=== PATIENT | male | born 1955 | race Hispanic/Latino ===

== ENCOUNTER 2024-01-04 04:07 | Emergency (ER) | payer OTHER ==
[~2024-01-04] VITALS: Ht 167.6 cm; Wt 80.7 kg
[2024-01-04 04:49] VITALS: TEMP 98.2
[2024-01-04 04:53] LABS: BASOPHILS % 0.3 % (0.0-1.0); EOSINOPHILS # (AUTO) 0.3 (0.0-0.4); EOSINOPHILS % 1.8 % (0.0-6.0); HEMATOCRIT 42.3 % (38.2-49.6); HEMOGLOBIN 13.8 g/dL (14.0-18.0); LYMPHOCYTES # (AUTO) 2.1 (1.0-3.2); LYMPHOCYTES % 14.6 % (18.0-39.1); MEAN CORPUSCULAR HEMOGLOBIN 30.9 pg (28-32); MEAN CORPUSCULAR HGB CONC 32.6 g/dL (31-35); MEAN CORPUSCULAR VOLUME 94.8 fL (81-99); MONOCYTES # (AUTO) 0.7 (0.2-0.8); MONOCYTES % 5.1 % (4.4-11.3); NEUTROPHILS # (AUTO) 11.4 (2.1-6.9); NEUTROPHILS % 77.9 % (38.7-80.0); PLATELET COUNT 346 x10e3/uL (140-360); RED BLOOD COUNT 4.46 x10e6/uL (4.3-5.7); WHITE BLOOD COUNT 14.56 x10e3/uL (4.8-10.8)
[2024-01-04 05:19] LABS: COVID 19 ANTIGEN NOT DETECTED (NEGATIVE)
[2024-01-04 05:20] LABS: ALANINE AMINOTRANSFERASE 19 IU/L (0-55); ALBUMIN 3.8 g/dL (3.5-5.0); ALKALINE PHOSPHATASE 112 IU/L (40-150); BILIRUBIN,TOTAL 0.5 mg/dL (0.2-1.2); BLOOD UREA NITROGEN 17 mg/dL (7-26); BUN/CREATININE RATIO 19 (6-25); CALCIUM 9.4 mg/dL (8.4-10.2); CARBON DIOXIDE 23 mmol/L (22-29); CHLORIDE 106 mmol/L (98-107); CREATINE KINASE 46 IU/L (30-200); CREATININE, SERUM 0.91 mg/dL (0.72-1.25); EST GLOMERULAR FILTRATION RATE 92 ML/MIN (>=60); GLUCOSE 129 mg/dL (74-118); SODIUM 138 mmol/L (136-145); TOTAL PROTEIN 7.6 g/dL (6.5-8.1)
[2024-01-04 05:25] LABS: TROPONIN I 0.003 ng/mL (0-0.300)
[2024-01-04] MEDS: KETOROLAC TROMETHAMINE 60 MG/2 ML VIAL IM ONE (05:31)
[2024-01-04] MEDS ORDERED: KETOROLAC TROMETHAMINE 60 MG/2 ML VIAL ONE (05:34)
[2024-01-04] MEDS ORDERED: IOPAMIDOL 370 MG/ML 100 ML INFUS..BTL INJ ONE (05:46)
[2024-01-04 06:16] LABS: AMPHETAMINES SCREEN,URINE NEGATIVE (NEGATIVE); BENZODIAZEPINES SCREEN,URINE NEGATIVE (NEGATIVE); CANNABINOIDS SCREEN,URINE NEGATIVE (NEGATIVE); METHADONE SCREEN, URINE NEGATIVE (NEGATIVE); OPIATES SCREEN,URINE NEGATIVE (NEGATIVE); PHENCYCLIDINE SCREEN,URINE NEGATIVE (NEGATIVE)
[2024-01-04] MEDS ORDERED: PREDNISONE20 MG PO (10:01)
[2024-01-04] MEDS ORDERED: CEFDINIR300 MG PO (10:01)
[2024-01-04] MEDS ORDERED: DOXYCYCLINE HY100 MG PO (10:01)
[2024-01-04 10:15] VITALS: PULSE 73; RESP 14; O2SAT 97
== END 2024-01-04 11:07 | disposition home or self-care (01) ==
LOC: ER 04:15
DX: R06.02 Shortness of breath (principal); J18.9 Pneumonia, unspecified organism; I31.39 Other pericardial effusion (noninflammatory); R07.81 Pleurodynia; I10 Essential (primary) hypertension; R73.03 Prediabetes; Z11.52 Encounter for screening for COVID-19; Z86.73 Personal history of transient ischemic attack (TIA), and cerebral infarction without residual deficits
CPT/HCPCS: 0223U; 36415; 71045; 71260; 80053; 80307; 82550; 83690; 83880; 84484; 85025; 93005; 99284; J1885; Q9967

== ENCOUNTER 2024-01-19 10:55 | Emergency (ER) | payer MEDICARE ==
[~2024-01-19] VITALS: Ht 170.2 cm; Wt 76.7 kg
[~2024-01-19 10:55] MED LIST: CEFDINIR300 MG PO; CEPHALEXIN500 MG PO; DOXYCYCLINE HY100 MG PO; PREDNISONE20 MG PO
[2024-01-19 11:03] VITALS: PULSE 78; RESP 15; TEMP 98.5; O2SAT 98
== END 2024-01-19 11:15 | disposition home or self-care (01) ==
LOC: ER 11:01
DX: Z48.02 Encounter for removal of sutures (principal)
CPT/HCPCS: 99281

== ENCOUNTER 2024-11-27 10:08 | Emergency (ER) | payer MEDICARE ==
[~2024-11-27] VITALS: Ht 170.2 cm; Wt 76.7 kg
[2024-11-27] MEDS ORDERED: SODIUM CHLORIDE 0.9% 1000ML 1,000 ML IV STA (10:50)
[2024-11-27] MEDS ORDERED: ONDANSETRON HCL INJ 2MG/ML 2ML 2 MG/ML VIAL IV STA (10:50)
[2024-11-27 11:22] LABS: BASOPHILS % 0.5 % (0.0-1.0); EOSINOPHILS % 1.6 % (0.0-6.0); LYMPHOCYTES % 28.4 % (18.0-39.1); MONOCYTES % 5.6 % (4.4-11.3); NEUTROPHILS % 63.6 % (38.7-80.0); RED CELL DISTRIBUTION WIDTH 11.9 % (11.7-14.4)
[2024-11-27 11:34] LABS: INR 0.9
[2024-11-27 11:38] LABS: EST GLOMERULAR FILTRATION RATE 100.0 ML/MIN (>=60)
[2024-11-27] MEDS ORDERED: IOPAMIDOL 370 MG/ML 100 ML INFUS..BTL INJ ONE (11:42)
[2024-11-27 12:49] LABS: LEUKOCYTE ESTERASE ,URINE NEGATIVE (NEGATIVE); PROTEIN,URINE DIPSTICK NEGATIVE (NEGATIVE); URINE UROBILINOGEN 0.2 mg/dL (0.2 - 1)
[2024-11-27 13:23] LABS: WBC,URINE (MAN) 0-5 /HPF (0-5)
[2024-11-27] MEDS ORDERED: MECLIZINE HCL 12.5 MG TAB PO ONE (13:30)
[2024-11-27] MEDS ORDERED: ONDANSETRON HCL INJ 2MG/ML 2ML 2 MG/ML VIAL ONE (13:37)
[2024-11-27] MEDS ORDERED: SODIUM CHLORIDE 0.9% 1000ML 1,000 ML ONE (13:37)
[2024-11-27] MEDS ORDERED: ONDANSETRON ODT4 MG PO (13:44)
[2024-11-27] MEDS ORDERED: MECLIZINE HCL12.5 MG PO (13:44)
[2024-11-27 14:25] VITALS: PULSE 60; RESP 16; TEMP 98.3
[2024-11-27 14:26] VITALS: BP 118/72; PULSE 60; TEMP 98.3; O2SAT 100
== END 2024-11-27 14:29 | disposition home or self-care (01) ==
LOC: ER 10:40
DX: R42 Dizziness and giddiness (principal); R11.0 Nausea; E11.65 Type 2 diabetes mellitus with hyperglycemia; Z86.73 Personal history of transient ischemic attack (TIA), and cerebral infarction without residual deficits
CPT/HCPCS: 36415; 70450; 70496; 70498; 71045; 80053; 81001; 82550; 83735; 84484; 85025; 85610; 85730; 93005; 99284; J2405; J7030; J8597; Q9967